=== PATIENT | female | born 1965 | race Caucasian/White ===

== ENCOUNTER 2021-05-25 04:07 | Outpatient (CLI) | payer MEDICAID | END 2021-05-25 04:08 | disposition critical access hospital (66) | LOC: EMS 04:07 | DX: R44.1 Visual hallucinations (principal); R20.0 Anesthesia of skin; R45.89 Other symptoms and signs involving emotional state; Z59.01 Sheltered homelessness | CPT/HCPCS: A0425; A0429; A0999 ==

== ENCOUNTER 2021-05-25 04:27 | Emergency (ER) | payer MEDICAID, MEDICARE ==
[2021-05-25 04:58] LABS: BILIRUBIN,URINE NEGATIVE (NEGATIVE); GLUCOSE, URINE (UA) NEGATIVE (NEGATIVE); KETONES,URINE (UA) NEGATIVE (NEGATIVE); LEUKOCYTE ESTERASE, URINE SMALL (NEGATIVE); MUDS CUTOFF CONCENTRATIONS CUTOFF CONC BELOW:; NITRITE,URINE NEGATIVE (NEGATIVE); OCCULT BLOOD,URINE NEGATIVE (NEGATIVE); PROTEIN,URINE NEGATIVE (NEGATIVE); UROBILINOGEN,URINE 0.2 (NORMAL) E.U./dL (NORMAL)
[2021-05-25 05:00] LABS: CLARITY,URINE CLEAR (CLEAR)
[2021-05-25 05:05] LABS: RBC,URINE 0-5 /HPF (0-5)
--- NOTE | 2021-05-25 05:05 | ED Physician Documentation ---
History of Present Illness - Stated complaint Stated Complaint: MHE - Chief complaint Chief Complaint: MHE - History obtained from History obtained from: Patient, EMS - Additonal information Additional information: 55yF with pmh bipolar, depression, and substance abuse p/w racing thoughts, hallucinations and passive SI after eating a meth crystal around 10pm this past evening at [place] where she is currently staying. patient has not slept all night and began to feel panicked, with tingling in hands, called ems and was brought here. denies other drug or alcohol use. she does state she doesn't "want to be here anymore" and would like to by physician assisted suicide. denies other plan at this time. 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 Psych: Depression, Anxiety, Bipolar disorder, Panic attacks Musculoskeletal: Chronic back pain Other Past Medical History: cervical CA - Past Surgical History Past Surgical History: Yes Ortho: Other /SALES EXHIBITOR: LEEP (Cervical surgery) HEENT: Tonsil/Adenoidectomy - Present Medications Home Medications: Ambulatory Orders Medication Instructions Recorded Confirmed Escitalopram [Lexapro] 10 mg PO DAILY 05/25/21 05/25/21 Metoprolol Succinate [Toprol Xl] 25 mg PO DAILY 05/25/21 05/25/21 busPIRone [Buspar] 10 mg PO TID 05/25/21 05/25/21 - Allergies Allergies/Adverse Reactions: Allergies Allergy/AdvReac Type Severity Reaction Status Date / Time latex Allergy Unknown Verified 05/25/21 04:39 - Social History Does the pt smoke?: Yes Smoking Status: Current every day smoker Does the pt drink ETOH?: Yes Does the pt have substance abuse?: Yes Substance Use and Type: Other - Immunizations Immunizations are current?: No Immunizations: TDAP >10years/unknown PD ED PE NORMAL - Vitals Vital signs reviewed: Yes - General General: Alert and oriented X 3, No acute distress, Other (pressured speech) - HEENT HEENT: Atraumatic, PERRL, EOMI, Moist mucous membranes, Pharynx benign - Neck Neck: Supple, no meningeal sign - Cardiac Cardiac: RRR - Respiratory Respiratory: No respiratory distress, Clear bilaterally - Abdomen Abdomen: Non tender, Non distended - Derm Derm: Normal color, Warm and dry - Extremities Extremities: No deformity - Neuro Neuro: Alert and oriented X 3, No motor deficit, No sensory deficit - Psych Psych: Other (clinically intoxicated with methamphetamine. ) Results - Vitals Vitals: Vital Signs - 24 hr 05/25/21 04:39 Temperature 36.5 C Heart Rate 67 Respiratory 17 Rate Blood Pressure 160/100 H O2 Saturation 99 Oxygen O2 Source Room air - EKG (time done) 0456 Rate: Rate (enter#) (56) Rhythm: NSR Intervals: Normal TN QRS: LVH Ischemia: Normal ST segments - Labs Labs: Laboratory Tests 05/25/21 04:25 Urine Color YELLOW Urine Clarity CLEAR Urine pH 6.0 Ur Specific [place] 1.015 Urine Protein NEGATIVE Urine Glucose (UA) NEGATIVE Urine Ketones NEGATIVE Urine Occult Blood NEGATIVE Urine Nitrite NEGATIVE Urine Bilirubin NEGATIVE Urine Urobilinogen 0.2 (NORMAL) Ur Leukocyte Esterase SMALL H Urine RBC 0-5 Urine WBC 6-10 H Ur Squamous Epith Cells FEW Squamous Urine Bacteria Few Ur Microscopic Review INDICATED Urine Culture Comments INDICATED Urine Opiates Screen NEGATIVE Ur Oxycodone Screen NEGATIVE Urine Methadone Screen NEGATIVE Ur Propoxyphene Screen NEGATIVE Ur Barbiturates Screen NEGATIVE Ur Tricyclics Screen NEGATIVE Ur Phencyclidine Scrn NEGATIVE Ur Amphetamine Screen POSITIVE H U Methamphetamines Scrn POSITIVE H U Benzodiazepines Scrn NEGATIVE Urine Cocaine Screen NEGATIVE U Cannabinoids Screen POSITIVE H PD MEDICAL DECISION MAKING - ED course ED course: 55yF p/w acute meth intoxication, racing thoughts, hallucinations, and passive SI. will obtain screening labs, place SW consult. patient to be endorsed to daytime MD Dr. Horn.
[2021-05-25 05:06] LABS: SQUAMOUS EPITHELIAL CELL,UR FEW Squamous (<= Few)
[2021-05-25 05:08] LABS: AMPHETAMINE SCREEN,URINE POSITIVE (NEGATIVE); BACTERIA,URINE Few /HPF (None Seen); COCAINE SCREEN URINE NEGATIVE (NEGATIVE); METHAMPHETAMINES SCREEN, URINE POSITIVE (NEGATIVE); OPIATE SCREEN, URINE NEGATIVE (NEGATIVE); THC CANNABINOID SCREEN, URINE POSITIVE (NEGATIVE)
[2021-05-25 05:09] LABS: BARBITURATE SCREEN,UR NEGATIVE (NEGATIVE); BENZODIAZEPINES SCREEN, URINE NEGATIVE (NEGATIVE); METHADONE SCREEN, URINE NEGATIVE (NEGATIVE); OXYCODONE SCREEN, URINE NEGATIVE (NEGATIVE); PROPOXYPHENE SCREEN, URINE NEGATIVE (NEGATIVE); TRICYCLIC ANTIDEPRESSANT,URINE NEGATIVE (NEGATIVE)
[2021-05-25] MEDS ORDERED: LORazepam 1 MG TABLET PO STA (05:19)
[2021-05-25 05:23] LABS: BASOPHILS # (AUTO) 0.1 10^3/uL (0.0-0.1); BASOPHILS % (AUTO) 1.5 %; EOSINOPHILS # (AUTO) 0.3 10^3/uL (0.0-0.7); EOSINOPHILS % (AUTO) 6.3 %; HCT - HEMATOCRIT 38.7 % (37.0-47.0); HGB - HEMOGLOBIN 13.1 g/dL (12.0-16.0); LYMPHOCYTES # (AUTO) 1.5 10^3/uL (1.5-3.5); LYMPHOCYTES % (AUTO) 31.4 %; MEAN CORPUSCULAR HGB CONC 33.9 g/dL (32.0-36.0); MEAN CORPUSCULAR VOLUME 94.4 fL (81.0-99.0); MEAN PLATELET VOLUME 9.7 fL (7.9-10.8); MONOCYTES # (AUTO) 0.6 10^3/uL (0.0-1.0); MONOCYTES % (AUTO) 11.8 %; NEUTROPHILS # (AUTO) 2.3 10^3/uL (1.5-6.6); NEUTROPHILS % (AUTO) 48.8 %; PLT - PLATELET COUNT 160 10^3/uL (130-450); RED CELL DISTRIBUTION WIDTH 12.6 % (12.0-15.0); WHITE BLOOD COUNT 4.7 x10^3/uL (4.8-10.8)
[2021-05-25 05:34] LABS: ACETAMINOPHEN < 10 ug/mL (10-30); ALBUMIN 4.2 g/dL (3.2-5.5); ALBUMIN/GLOBULIN RATIO 1.4 (1.0-2.2); ALKALINE PHOSPHATASE 44 IU/L (42-121); ALT ALANINE AMINOTRANSFERASE 30 IU/L (10-60); AST ASPARTATE AMINOTRANSFERASE 35 IU/L (10-42); BILIRUBIN,TOTAL 0.6 mg/dL (0.2-1.0); BUN - BLOOD UREA NITROGEN 24 mg/dL (6-20); CALCIUM 9.3 mg/dL (8.5-10.3); CARBON DIOXIDE - CO2 27 mmol/L (21-32); CHLORIDE 101 mmol/L (101-111); CREATININE 1.4 mg/dL (0.4-1.0); ETOH - ETHANOL < 5.0 mg/dL; GFR - MDRD 39 (>89); GLUCOSE 91 mg/dL (70-100); LIPASE 33 U/L (22-51); POTASSIUM 3.8 mmol/L (3.5-5.0); SALICYLATE < 6.0 mg/dL; SODIUM 137 mmol/L (135-145); TOTAL PROTEIN 7.2 g/dL (6.7-8.2)
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
[2021-05-25 10:42] VITALS: BP 100/80
== END 2021-05-25 10:42 | disposition home or self-care (01) ==
LOC: EDUNIT# → ED 04:27
DX: F41.1 Generalized anxiety disorder (principal); F43.9 Reaction to severe stress, unspecified; I10 Essential (primary) hypertension; F17.200 Nicotine dependence, unspecified, uncomplicated
CPT/HCPCS: 36415; 80053; 80306; 80307; 80320; 80329; 81001; 83690; 84443; 85025; 87086; 93005; 99281; 99285; J8499; 81003

== ENCOUNTER 2023-11-04 08:53 | Outpatient (CLI) | payer SELFPAY | END 2023-11-04 23:59 | disposition critical access hospital (66) | LOC: EMS 08:53 | DX: G43.909 Migraine, unspecified, not intractable, without status migrainosus (principal) | CPT/HCPCS: A0425; A0429 ==

== ENCOUNTER 2023-11-04 09:16 | Emergency (ER) | payer SELFPAY ==
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
[2023-11-04 09:37] LABS: BASOPHILS % (AUTO) 1.2 %; EOSINOPHILS # (AUTO) 0.1 10^3/uL (0.0-0.7); HCT - HEMATOCRIT 38.8 % (37.0-47.0); HGB - HEMOGLOBIN 12.4 g/dL (12.0-16.0); LYMPHOCYTES # (AUTO) 0.9 10^3/uL (1.5-3.5); LYMPHOCYTES % (AUTO) 26.1 %; MEAN CORPUSCULAR HEMOGLOBIN 29.9 pg (27.0-31.0); MEAN CORPUSCULAR VOLUME 93.5 fL (81.0-99.0); MEAN PLATELET VOLUME 9.8 fL (7.9-10.8); MONOCYTES # (AUTO) 0.4 10^3/uL (0.0-1.0); MONOCYTES % (AUTO) 10.4 %; NEUTROPHILS % (AUTO) 59.3 %; PLT - PLATELET COUNT 144 10^3/uL (130-450); RED BLOOD COUNT 4.15 10^6/uL (4.20-5.40); RED CELL DISTRIBUTION WIDTH 12.7 % (12.0-15.0); WHITE BLOOD COUNT 3.4 x10^3/uL (4.8-10.8)
[2023-11-04] MEDS: DROPERIDOL 5 MG/2 ML VIAL IVP STA (09:51)
[2023-11-04] MEDS: LORazepam 2 MG/ML VIAL IVP STA (09:51)
[2023-11-04 09:54] LABS: ALBUMIN 4.4 g/dL (3.2-5.5); ALBUMIN/GLOBULIN RATIO 1.6 (1.0-2.2); ALKALINE PHOSPHATASE 50 IU/L (42-121); ALT ALANINE AMINOTRANSFERASE 23 IU/L (10-60); AST ASPARTATE AMINOTRANSFERASE 37 IU/L (10-42); BILIRUBIN,TOTAL 0.6 mg/dL (0.2-1.0); BUN - BLOOD UREA NITROGEN 28 mg/dL (6-20); CALCIUM 10.8 mg/dL (8.5-10.3); CARBON DIOXIDE - CO2 26 mmol/L (21-32); CHLORIDE 103 mmol/L (101-111); CREATININE 1.2 mg/dL (0.6-1.3); ETOH - ETHANOL < 10.0 mg/dL; GFR - MDRD 46 (>89); GLUCOSE 109 mg/dL (74-104); LIPASE 16 U/L (11-82); MAGNESIUM 1.5 mg/dL (1.7-2.3); POTASSIUM 3.6 mmol/L (3.5-4.5); SODIUM 136 mmol/L (135-145); TOTAL PROTEIN 7.2 g/dL (6.4-8.9)
[2023-11-04 09:55] LABS: CK- CREATINE KINASE 365 IU/L (30-223)
[2023-11-04 09:56] LABS: ACETAMINOPHEN < 0.1 ug/mL; SALICYLATE < 1.5 mg/dL
[2023-11-04] MEDS: SODIUM CHLORIDE 0.9% 1,000 ML IV STA (10:01)
[2023-11-04 10:07] LABS: THYROID STIMULATING HORMONE 2.16 uIU/mL (0.34-5.60)
[2023-11-04] MEDS: MAGNESIUM SULFATE 2 GRAM 2 GM/50 ML BAG IV ONE (10:45)
[2023-11-04 14:32] VITALS: BP 165/97; O2SAT 99
== END 2023-11-04 18:00 | disposition home or self-care (01) ==
LOC: ED 09:16
DX: F31.9 Bipolar disorder, unspecified (principal); I10 Essential (primary) hypertension; I25.2 Old myocardial infarction; Z87.11 Personal history of peptic ulcer disease; Z59.00 Homelessness unspecified; Z79.899 Other long term (current) drug therapy; F17.200 Nicotine dependence, unspecified, uncomplicated
CPT/HCPCS: 36415; 80053; 80143; 80179; 82077; 82550; 83690; 83735; 84443; 85025; 87635; 96361; 96365; 96375; 99284; J2060